=== PATIENT | female | born 1960 | race Caucasian/White ===

== ENCOUNTER → 2016-04-20 | Outpatient (CLI) | payer BC ==
[~2016-04-20] MED LIST: CORDARONE 200M200 MG PO; COZAAR50 MG PO; DILTIAZEM 24HR120 M1 PO; ELIQUIS5 MG PO; GLIPIZIDE ER5 MG PO; JANUMET 50-1,01 EACH PO; LEVEMIR FL100 UNIT/1 SQ; LIPITOR TAB 2020 MG PO; LIPITOR20 MG PO; PROTONIX40 MG PO; ROPINIROLE HC0.25 MG PO; SOTALOL80 MG PO; ZOCOR40 MG PO
[2016-04-20 12:40] LABS: HEMOGLOBIN 11.5 gm/dl (12.3-15.3); RED BLOOD COUNT 4.02 M/UL (4.00-5.10); WHITE BLOOD COUNT 6.8 K/UL (4.5-11.0)
[2016-04-20 12:56] LABS: BUN/CREATININE RATIO 12 (0-10)
== END ==
LOC: LAB 10:37
PROVIDERS: Internal Medicine Cardiovascular Disease
DX: I10 Essential (primary) hypertension (principal); E11.9 Type 2 diabetes mellitus without complications; I48.92 Unspecified atrial flutter; J98.4 Other disorders of lung
CPT/HCPCS: 71020; 80048; 85025

== ENCOUNTER 2016-04-22 09:33 | Outpatient (CLI) | payer BC ==
[~2016-04-22] VITALS: Ht 157.5 cm; Wt 98.0 kg
[2016-04-22] MEDS ORDERED: ELIQUIS5 MG PO (11:04)
[2016-04-22] MEDS ORDERED: COZAAR50 MG PO (11:04)
[2016-04-22] MEDS ORDERED: DILTIAZEM 24HR120 M1 PO (11:04)
[2016-04-22] MEDS ORDERED: SOTALOL80 MG PO (11:05)
[2016-04-22] MEDS ORDERED: ROPINIROLE HC0.25 MG PO (11:05)
[2016-04-22] MEDS ORDERED: ZOCOR40 MG PO (11:05)
[2016-04-22] MEDS ORDERED: JANUMET 50-1,01 EACH PO (11:06)
[2016-04-22] MEDS ORDERED: PROTONIX40 MG PO (11:06)
[2016-04-22] MEDS ORDERED: GLIPIZIDE ER5 MG PO (11:07)
[2016-04-22] MEDS ORDERED: LEVEMIR FL100 UNIT/1 SQ (11:08)
[2016-04-23 00:30] LABS: BUN/CREATININE RATIO 18 (0-10)
[2016-04-23] MEDS ORDERED: CORDARONE 200M200 MG PO (09:35)
[2016-04-23] MEDS ORDERED: LIPITOR TAB 2020 MG PO (09:36)
[2016-04-23] MEDS ORDERED: LIPITOR20 MG PO (09:38)
== END 2016-04-23 10:40 | disposition home or self-care (01) ==
LOC: CATH 09:33 → PROG CARE 16:27 → CATH 04-23 10:40
PROVIDERS: Internal Medicine Cardiovascular Disease
DX: I48.92 Unspecified atrial flutter (principal); I49.5 Sick sinus syndrome; I10 Essential (primary) hypertension; E11.9 Type 2 diabetes mellitus without complications; E78.5 Hyperlipidemia, unspecified; Z23 Encounter for immunization; Z79.02 Long term (current) use of antithrombotics/antiplatelets; Z79.84 Long term (current) use of oral hypoglycemic drugs; Z79.4 Long term (current) use of insulin; Z79.899 Other long term (current) drug therapy; R05 Cough; E78.00 Pure hypercholesterolemia, unspecified
CPT/HCPCS: 36415; 80048; 80076; 82962; 83735; 84439; 84443; 92960; 93609; 93621; C1730; C1766; J1644; J1742; J2250; J3010; J7030; J7040; Q2039

== ENCOUNTER → 2016-06-08 | Outpatient (CLI) | payer BC | LOC: HEART 5 08:50 | DX: Z79.899 Other long term (current) drug therapy (principal); R94.2 Abnormal results of pulmonary function studies | CPT/HCPCS: 94060; 94729 ==

== ENCOUNTER → 2016-06-08 | Outpatient (CLI) | payer BC | LOC: LAB 10:16 | DX: E11.9 Type 2 diabetes mellitus without complications (principal); E78.5 Hyperlipidemia, unspecified; I10 Essential (primary) hypertension; I48.92 Unspecified atrial flutter; Z79.899 Other long term (current) drug therapy | CPT/HCPCS: 36415; 80076; 84439; 84443; 84481 ==

== ENCOUNTER → 2021-04-01 | Outpatient (CLI) | payer BC | LOC: HEART CORB 10:22 | DX: R07.2 Precordial pain (principal); I48.21 Permanent atrial fibrillation; I48.92 Unspecified atrial flutter; I10 Essential (primary) hypertension; E78.5 Hyperlipidemia, unspecified | CPT/HCPCS: 78452; A9502; J2785 ==